=== PATIENT | male | born 1960 | race Hispanic/Latino ===

== ENCOUNTER 2019-08-09 08:12 | Outpatient (CLI) | payer OTHER ==
--- NOTE | 2019-08-09 08:44 | ULT ---
EXAM: US Thyroid STANDARD PROVIDED CLINICAL HISTORY: Thyroid nodule COMPARISON: None FINDINGS: The right lobe of the thyroid gland measures 4.1 cm x 2.2 cm x 1 cm with the left lobe measuring 3.7 cm x 1.6 cm x 1.1 cm. The thyroid isthmus is mildly thickened in AP dimensions measuring 0.5 cm. There is a solitary circumscribed nodule demonstrating increased echogenicity within the inferior nida e right lobe of the thyroid gland which measures 1.1 cm. No additional thyroid nodules are seen in either lobe of the thyroid gland. IMPRESSION: TI RADS level 3, mildly suspicious nodule left thyroid lobe. Based on size criteria, no additional fo llow-up is warranted.
== END 2019-08-09 08:13 | disposition home or self-care (01) ==
LOC: SCSULT 08:12
PROVIDERS: ATTEND Internal Medicine Endocrinology, Diabetes & Metabolism
DX: E04.1 Nontoxic single thyroid nodule (principal)
CPT/HCPCS: 76536

== ENCOUNTER 2021-05-07 18:00 | Outpatient (CLI) | payer OTHER | END 2021-05-07 18:01 | disposition home or self-care (01) | LOC: SLEEPLAB 18:00 | PROVIDERS: ATTEND Internal Medicine | DX: G47.61 Periodic limb movement disorder (principal); G47.33 Obstructive sleep apnea (adult) (pediatric); R06.83 Snoring; G47.00 Insomnia, unspecified | CPT/HCPCS: 95806 ==

== ENCOUNTER 2025-06-02 09:36 | Outpatient (CLI) | payer OTHER | END 2025-06-02 09:37 | disposition home or self-care (01) | LOC: SCSMRI 09:36 | PROVIDERS: ATTEND Orthopaedic Surgery | DX: M24.812 Other specific joint derangements of left shoulder, not elsewhere classified (principal); M67.814 Other specified disorders of tendon, left shoulder; S46.012A Strain of muscle(s) and tendon(s) of the rotator cuff of left shoulder, initial encounter; S43.422A Sprain of left rotator cuff capsule, initial encounter ==

== ENCOUNTER 2025-08-08 11:45 | Outpatient (CLI) | payer OTHER ==
[2025-08-08 13:02] LABS: #Basophils 0.08 10x3/uL (0.0-0.2); #Eosinophils 0.24 10x3/uL (0.0-0.7); #Monocytes 0.55 10x3/uL (0.11-0.59); #Neutrophils 4.17 10x3/uL (1.40-6.50); %Basophils 1.1 % (0.0-1.0); %Eosinophils 3.4 % (0.0-10.0); %Lymphocytes 27.4 % (21.0-51.0); %Monocytes 7.9 % (0.0-10.0); %Neutrophils 59.9 % (42.0-75.0); Hematocrit 43.5 % (42.0-52.0); Hemoglobin 13.4 g/dL (14.0-18.0); Mean Corpuscular Hemoglobin 26.1 pg (27.0-31.0); Mean Corpuscular Volume 84.8 fL (78.0-98.0); Platelet Count 243 10x3/uL (130-400); Red Blood Cell (RBC) Count 5.13 mill/uL (4.70-6.10); White Blood Cell (WBC) Count 6.97 10x3/uL (4.8-10.8)
[2025-08-08 13:26] LABS: ALT (SGPT) 22 U/L (Less than 45); AST (SGOT) 28 U/L (11-34); Albumin 4.0 g/dL (3.1-4.5); Alkaline Phosphatase 116 U/L (40-110); Anion Gap 12 mmol/L (10-20); BUN (Urea Nitrogen) 10 mg/dL (8.4-25.7); Bilirubin, Total 0.3 mg/dL (0.3-1.2); Calc. Creatinine Clearance 0 mL/min (70-130); Calcium 8.9 mg/dL (7.8-10.44); Carbon Dioxide 26 mmol/L (23-31); Chloride 105 mmol/L (98-107); Globulin 3.2 g/dL (2.4-3.5); Glucose 104 mg/dL (80-115); Potassium 4.5 mmol/L (3.5-5.1); Sodium 138 mmol/L (136-145)
== END 2025-08-08 11:46 | disposition home or self-care (01) ==
LOC: LABBT 11:45
PROVIDERS: ATTEND Orthopaedic Surgery
DX: Z01.818 Encounter for other preprocedural examination (principal); S46.012D Strain of muscle(s) and tendon(s) of the rotator cuff of left shoulder, subsequent encounter
CPT/HCPCS: 80053; 85025; 93005; 93010